=== PATIENT | male | born 1960 | race Caucasian/White ===

== ENCOUNTER 2022-10-22 02:58 | Emergency (ER) | payer OTHER ==
[2022-10-22] MEDS ORDERED: CEFAZOLIN SODIUM 1 GM/VIAL ONE (03:38)
[2022-10-22] MEDS ORDERED: LIDOCAINE 1% W/EPI 1:100,000 50 ML MDV ONE (03:39)
[2022-10-22] MEDS ORDERED: WATER FOR INJ,STERILE 10 ML ONE (03:39)
--- NOTE | 2022-10-22 04:30 | ER ---
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 Care prior to arrival: None. Mechanism of Injury: Fall down 2 steps. Trauma event details: Injury occurred in the [facility], Injury occurred: at home. Injury occurred: October 22, 2022. 03:08 Acuity: LEELEE 4 kl 03:08 Method Of Arrival: Ambulatory kl 03:38 Coronavirus screen: Vaccine status: Patient reports receiving the 2nd dose of the covid rv vaccine. Date 2020. Ebola Screen: Patient negative for fever greater than or equal to 101.5 degrees Fahrenheit, and additional compatible Ebola Virus Disease symptoms Patient denies exposure to infectious person. Patient denies travel to an Ebola-affected area in the 21 days before illness onset. Initial Sepsis Screen: Does the patient meet any 2 criteria? No. Patient's initial sepsis screen is negative. Does the patient have a suspected source of infection? No. Patient's initial sepsis screen is negative. Risk Assessment: Do you want to hurt yourself or someone else? Patient reports no desire to harm self or others. Onset of symptoms was October 22, 2022. Trauma Activation: Not Applicable Physician: ED Physician; Name: ; Notified At: ; Arrived At: Physician: General Surgeon; Name: ; Notified At: ; Arrived At: Physician: Radiology; Name: ; Notified At: ; Arrived At: Physician: Respiratory; Name: ; Notified At: ; Arrived At: Physician: Lab; Name: ; Notified At: ; Arrived At: Historical: - Allergies: 03:12 No Known Allergies; kl - PMHx: 03:12 Hypertensive disorder; high cholesterol; kl - Immunization history: Last tetanus immunization: < 5 years ago. - Social history:: Smoking status: Patient denies any tobacco usage or history of. Screenin:36 Abuse screen: Denies threats or abuse. Denies injuries from another. Tuberculosis rv screening: No symptoms or risk factors identified. 03:37 [facility] ED Fall Risk Assessment (Adult) History of falling in the last 3 months, rv including since admission Yes- fall prone (multiple falls) (3 pts) Confusion or Disorientation No (0 pts) Intoxicated or Sedated Yes (3 pts) Impaired Gait Yes (1 pt) Mobility Assist Device Used No (0 pt) Altered Elimination No (0 pt) Score/Fall Risk Level 3 or more points = High Risk Oriented to surroundings, Maintained a safe environment, Educated pt \T\ family on fall prevention, incl call for assistance when getting out of bed, Assessed \T\ reinforced patient's understanding of fall precautions, Provided non-skid footwear, Hourly rounding (assess needs \T\ fall precautionary measures) done, Used ambulatory aids as needed (educated on \T\ assisted with), Used gait belt as appropriate Implemented a Fall Risk Plan of Care, Apply high fall risk patient identification: yellow non skid footwear/ fall signage, Placed fall mat w/ non beveled edge next to bed, Activated bed/chair alarm, Remained w/in arm's length of patient and in sight while toileting, Offered frequent toileting (1:1 observation), Remained with patient while ambulating, Utilized family, sitter, or virtual die finisher forging as indicated. Nutritional screening: No deficits noted. Primary Survey: 03:12 NO uncontrolled hemorrhage observed. A: The client is awake and alert. The airway is kl patent. Breathing/Chest: Spontaneous respiratory effort, equal unlabored respirations, breath sounds clear bilaterally, regular pattern, symmetrical chest rise and fall. Circulation: No external hemorrhage present. Regular and strong central pulse, skin warm/dry/normal color. Disability Pupils are equal, round, reactive to light and accommodation. Exposure/Environment: 03:26 Reassessment Alertness and Airway: Awake and alert. The airway is patent. Airway Patent rv Breathing: Spontaneous respiratory effort, equal unlabored respirations, breath sounds clear bilaterally, regular pattern with symmetrical chest rise and fall. Respiratory effort Spontaneous Unlabored Circulation: No external hemorrhage noted. Regular and strong central pulse, skin warm/dry/normal color. Secondary Survey: 03:26 HEENT: Head Other abrasion to forehead and nose Face No injury/deformity Eyes: No rv injury or deformity noted. to bilateral eyes. Ears: clear Nose: clear to bilateral nares. Throat: No injury or deformity noted. 03:35 Gastrointestinal: No deficits noted. Abdomen is soft. : No signs and/or symptoms were rv reported regarding the genitourinary system. Musculoskeletal: Musculoskeletal: Circulation, motion, and sensation intact. Injury Description: Laceration sustained to left elbow is full thickness, 2.6 to 7.5 cm long, not bleeding, was sustained 30-60 minutes ago. Assessment: 03:11 General: Appears in no apparent distress. Behavior is calm, cooperative. Pain: Denies pain. Neuro: No deficits noted. Denies LOC. Vital Signs: 03:13 BP 141 / 80; Pulse 81; Resp 20; Temp 97.8; Pulse Ox 96% on R/A; Weight 128.5 kg (M); kl Height 5 ft. 11 in. ; 03:13 Body Mass Index 39.51 (128.50 kg, 180.34 cm) [place] Coma Score: 03:13 Eye Response: spontaneous(4). Motor Response: obeys commands(6). Verbal Response: kl oriented(5). Total: 15. 04:37 Eye Response: spontaneous(4). Motor Response: obeys commands(6). Verbal Response: rv oriented(5). Total: 15. Trauma Score (Adult): 03:13 Eye Response: spontaneous(1); Verbal Response: oriented(1); Motor Response: obeys commands(2); Systolic BP: > 89 mm Hg(4); Respiratory Rate: 10 to 29 per min(4); [place] Score: 15; Trauma Score: 12 ED Course: 02:59 Patient arrived in ED. ja2 03:01 Jordan Arzola MD is Attending Physician. bs3 03:02 Marcellus Perkins RN is Primary Nurse. rv 03:11 Triage completed. kl 03:24 Marcellus Perkins RN is Primary Nurse. rv 03:36 Patient has correct armband on for positive identification. Bed in low position. Call rv light in reach. Side rails up X 1. 03:36 Dressings: 4X4s X 4; left elbow. Irrigation of laceration on left elbow irrigated with rv normal saline. Patient maintains SpO2 saturation greater than 95% on room air. 03:38 Arm band placed on left wrist. Bandage applied. Pressure dressing applied. rv 03:39 Thermoregulation: warm blanket given to patient. rv 03:55 Elbow Left 3 View XRAY In Process Unspecified. EDMS 04:35 Assist provider with laceration repair on left elbow that was between 2.6 to 7.5 cm rv using sutures. Set up tray. Performed by Jordan Arzola MD Dressed with 4X4s, Patient tolerated well. Patient did not have IV access during this emergency room visit. Administered Medications: 03:42 Drug: CeFAZolin IM 1 grams Route: IM; Site: right gluteus; rv 04:38 Follow up: Response: No adverse reaction rv 03:59 Drug: Lidocaine-Epinephrine Infiltration -1%: (1:100,000) 20 ml {Note: administered by rv ED physician.} Volume: 20 ml; Route: Infiltration; 04:38 Follow up: Response: No adverse reaction rv Medication: 03:39 VIS not applicable for this client. rv Output: 03:38 Urine: 300ml (Voided); Total: 300ml. rv Outcome: 04:29 Discharge ordered by . bs3 04:36 Discharged to home with family. rv 04:36 Condition: good 04:36 Discharge instructions given to patient, family, Instructed on discharge instructions, follow up and referral plans. wound care, Demonstrated understanding of instructions, follow-up care, wound care. 04:37 Patient's length of stay was not longer than 2 hours. rv 04:38 Patient left the ED. rv Signatures: Dispatcher [employer] MADISYNAK Nicole Majano RN RN kl Vicente, Ronaldo, RN RN rv Alexander, Jessica ja2 Stein, Brandon, MD MD bs3
--- NOTE | 2022-10-22 04:30 | EDPHYS ---
Physician Documentation [facility] Name: Srinivasa Ghosh Age: 61 yrs Sex: Male : 1960 Arrival Date: 10/22/2022 Time: 02:58 Bed 8 Private MD: ED Physician Jordan Arzola HPI: 10/22 03:23 This 61 yrs old Male presents to ER via Ambulatory with complaints of Fall bs3 Injury. 03:23 Patient notes that he slipped and fell hitting his left elbow no head injury no loss of bs3 consciousness complaining of left elbow pain and laceration his last tetanus was within the last year, he notes a prior fall during this vacation as well per family at bedside he had slightly dizzy just prior to the fall and his blood pressure was low. Historical: - Allergies: 03:12 No Known Allergies; kl - PMHx: 03:12 Hypertensive disorder; high cholesterol; kl - Immunization history: Last tetanus immunization: < 5 years ago. - Social history:: Smoking status: Patient denies any tobacco usage or history of. ROS: 03:23 Constitutional: Negative for fever, chills bs3 03:23 All other systems are negative. Exam: 03:23 Constitutional: This is a well developed, well nourished patient who is awake, alert, bs3 and in no acute distress. Head/Face: Normocephalic, atraumatic. Eyes: Pupils equal round and reactive to light, extra-ocular motions intact. Lids and lashes normal. ENT: mmm, no posterior phyarngeal erythema Neck: Trachea midline, no thyromegaly, no neck stiffness Chest/axilla: Normal chest wall appearance and motion. Nontender with no deformity. No lesions are appreciated. Cardiovascular: Regular rate and rhythm with a normal S1 and S2. symmetric pulses in upper extremities Respiratory: Lungs have equal breath sounds bilaterally, clear to auscultation, no respiratory distress Abdomen/GI: Soft, non-tender, no rebound or guarding MS/ Extremity: 1+ pitting edema in his bilateral lower extremities, he has an laceration over the left elbow no visible joint involvement Neuro: Awake and alert, GCS 15, oriented to person, place, time, and situation. Cranial nerves II-XII grossly intact. Motor strength 5/5 in all extremities. Sensory grossly intact. Psych: Awake, alert, with orientation to person, place and time. Behavior, mood, and affect are within normal limits. Vital Signs: 03:13 BP 141 / 80; Pulse 81; Resp 20; Temp 97.8; Pulse Ox 96% on R/A; Weight 128.5 kg (M); kl Height 5 ft. 11 in. ; 03:13 Body Mass Index 39.51 (128.50 kg, 180.34 cm) [place] Coma Score: 03:13 Eye Response: spontaneous(4). Motor Response: obeys commands(6). Verbal Response: kl oriented(5). Total: 15. 04:37 Eye Response: spontaneous(4). Motor Response: obeys commands(6). Verbal Response: rv oriented(5). Total: 15. Trauma Score (Adult): 03:13 Eye Response: spontaneous(1); Verbal Response: oriented(1); Motor Response: obeys kl commands(2); Systolic BP: > 89 mm Hg(4); Respiratory Rate: 10 to 29 per min(4); Gautam Score: 15; Trauma Score: 12 Laceration: 04:25 Wound Repair of 4cm ( 1.6in ) subcutaneous laceration to left arm. Distal bs3 neuro/vascular/tendon intact. Anesthesia: Local anesthetic administered with 5 mls of 1% lidocaine w/ Epi. Wound prep: Simple cleansing with betadine by il, Copious irrigation. Skin closed with 4 4-0 Prolene using simple sutures and sterile technique. Skin closed with 1-0 Prolene using simple sutures and sterile technique. Skin closed with 3 3-0 Nylon using interrupted sutures and sterile technique. Dressed with Bacitracin, 4x4's. Patient tolerated well. MDM: 03:01 Patient medically screened. bs3 03:23 Data reviewed: vital signs, nurses notes. ED course: Will get x-ray tetanus is already bs3 up-to-date given the injury will give antibiotics with close laceration patient strongly advised to follow-up for further work-up given the dizziness and the leg swelling return precautions given he was offered work-up now but wanted to just leave. 04:25 ED course: laceration repaired, discharged home, return prec given. . bs3 10/22 03:22 Order name: Elbow Left 3 View XRAY bs3 Administered Medications: 03:42 Drug: CeFAZolin IM 1 grams Route: IM; Site: right gluteus; rv 04:38 Follow up: Response: No adverse reaction rv 03:59 Drug: Lidocaine-Epinephrine Infiltration -1%: (1:100,000) 20 ml {Note: administered by ED physician.} Volume: 20 ml; Route: Infiltration; 04:38 Follow up: Response: No adverse reaction rv Disposition Summary: 10/22/22 04:29 Discharge Ordered Location: Home bs3 Problem: new bs3 Symptoms: have improved bs3 Condition: Stable bs3 Diagnosis - Laceration without foreign body of left elbow bs3 Followup: bs3 - With: Private Physician - When: 10 - 14 days - Reason: Re-evaluation by your physician Discharge Instructions: - Discharge Summary Sheet bs3 - Laceration Care, Adult, [id number] bs3 Forms: - Medication Reconciliation Form bs3 - Thank You Letter bs3 - Antibiotic Education bs3 - Prescription Opioid Use bs3 Signatures: Dispatcher [employer] Nicole Burgos RN Marcellus Davis RN RN Jordan Shields MD MD bs3
[2022-10-22 06:06] VITALS: BP 141/80; TEMP 97.8; O2SAT 96
--- NOTE | 2022-10-22 14:08 | RAD REPORT ---
EXAM DESCRIPTION: Elbow Left 3 View CLINICAL HISTORY: DEFORMITY TECHNIQUE: Three views of the left elbow are submitted. COMPARISON: None available for comparison FINDINGS: Bones: No acute fracture or dislocation. Joints: Joint spaces are unremarkable. No evidence of hemarthrosis or joint effusion. Soft tissues: Soft tissue injury dorsal to the proximal ulna. IMPRESSION: Soft tissue injury dorsal to the proximal ulna. No acute fracture. Electronically signed by: Lc uGtiérrez MD 10/22/2022 4:11 AM CDT Due to temporary technical issues with the PACS/Fluency reporting system, reports are being signed by the in house radiologist without review as a courtesy to ensure prompt reporting. The interpreting r adiologist is fully responsible for the content of the report.
== END 2022-10-22 04:38 | disposition home or self-care (01) ==
LOC: ER 02:58
PROC: 0HQEXZZ Repair Left Lower Arm Skin, External Approach (ICD-10-PCS; principal; 2022-10-22)
DX: S51.012A Laceration without foreign body of left elbow, initial encounter (principal); R42 Dizziness and giddiness; I10 Essential (primary) hypertension
CPT/HCPCS: 73080; 96372; 99285; 12002; J0690